=== PATIENT | female | born 1995 | race Caucasian/White ===

== ENCOUNTER 2016-10-31 20:17 | Emergency (ER) | payer OTHER ==
[~2016-10-31] VITALS: Ht 152.4 cm; Wt 116.6 kg
[~2016-10-31 20:17] MED LIST: AMOXICILLIN500 MG PO; AUGMENTIN 875875 MG PO; BACTRIM DS 8001 TA1 PO; BENADRYL25 MG PO; BIRTH CONTROL1 EAC1 PO; CILOXAN 5 ML5 M1 OT; CORTISPORIN SUS10 ML OT; DOXYCYCLINE HY100 M3 PO; DURICEF250 MG/5 M PO; FERATE27 MG PO; HYDROCODONE BIT1 T11 PO; INDERAL XL80 MG PO; IRON324 M1 PO; MACROBID100 M1 PO; METOCLOPRAMIDE5 MG PO; METRONIDAZOLE500 M1 PO; MIGRAINE MED; MOTRIN400 MG PO; NORCO 325 MG-51 TAB PO; PERCOCET 325 MG1 TA2 PO; PRENATAL1 TA1 PO; PROVENTIL0.09 MG/A1 INH; SYNTHROID25 MCG PO; TORADOL10 MG PO; ULTRAM50 MG PO; ZITHROMAX Z PA250 MG PO; ZOFRAN ODT4 MG SL; ZOFRAN4 MG PO; ZOSYN 4/0.5 44.5 GM IV; ZYRTEC10 MG PO; Zofran4 MG PO
[2016-10-31 20:47] VITALS: BP 142/58
[2016-10-31] MEDS ORDERED: AUGMENTIN 875-875 MG PO (21:41)
[2016-11-01] MEDS ORDERED: Zofran4 MG PO (12:03)
[2016-11-27] MEDS ORDERED: MACROBID100 M1 PO (04:01)
== END 2016-10-31 21:47 | disposition home or self-care (01) ==
LOC: ED 20:17
DX: J02.0 Streptococcal pharyngitis (principal); E78.5 Hyperlipidemia, unspecified; E03.9 Hypothyroidism, unspecified; G43.909 Migraine, unspecified, not intractable, without status migrainosus; E66.01 Morbid (severe) obesity due to excess calories

== ENCOUNTER 2017-02-07 21:38 | Emergency (ER) | payer OTHER ==
[~2017-02-07] VITALS: Ht 152.4 cm; Wt 72.1 kg
[~2017-02-07 21:38] MED LIST changes: +AUGMENTIN 875-875 MG PO
[2017-02-07] MEDS ORDERED: PRENATAL VITAM1 EAC2 PO (22:19)
[2017-02-07 22:20] VITALS: BP 123/57
[2017-02-07 22:38] LABS: BILIRUBIN NEGATIVE (NEGATIVE); BLOOD NEGATIVE (NEGATIVE); CLARITY CLOUDY (CLEAR); COLOR YELLOW (YELLOW); GLUCOSE NEGATIVE (NEGATIVE); KETONE TRACE (NEGATIVE); LEUKO ESTERASE 2+ (NEGATIVE); NITRITE NEGATIVE (NEGATIVE); PH 5.5 (5.0-9.0); PROTEIN NEGATIVE (NEGATIVE); SPECIFIC GRAVITY 1.025 (1.005-1.030)
[2017-02-07 22:51] LABS: BACTERIA 1+; EPITHELIAL CELLS 16-20; URINE REFLEX COMMENT YES (NO)
[2017-02-07 22:54] LABS: BASO % 0.2 % (0.0-1.0); EOS # 0.1 10*3/uL (0.0-0.4); HEMATOCRIT 34.4 % (37.0-47.0); HEMOGLOBIN 11.2 g/dl (12.0-16.0); LYMPH # 3.4 10*3/uL (1.3-4.4); LYMPH % 27.2 % (27.0-41.0); MEAN CELL VOLUME 85.1 fl (81.0-99.0); MEAN CORPUSCULAR HGB 27.7 pg (27.0-31.0); MEAN CORPUSCULAR HGB CONC 32.6 g/dl (33.0-37.0); MEAN PLATELET VOLUME 10.2 fl (9.6-12.3); MONO # 0.7 10*3/uL (0.1-1.0); MONO % 5.4 % (3.0-9.0); NEUT # 8.3 10*3/uL (2.3-7.9); NEUT % 65.9 % (47.0-73.0); PLATELET COUNT AUTOMATED 201 10*3/uL (130-400); RED BLOOD COUNT 4.04 10*6/uL (4.10-5.10); RED CELL DISTRI WIDTH 13.8 % (0-14.5); WHITE BLOOD COUNT 12.6 10*3/uL (4.8-10.8)
[2017-02-07] MEDS ORDERED: MACROBID100 M1 PO (23:25)
== END 2017-02-08 00:14 | disposition hospice, home (50) ==
LOC: ED 21:38
PROVIDERS: Nurse Practitioner Family; Student in an Organized Health Care Education/Training Program
DX: O98.811 Other maternal infectious and parasitic diseases complicating pregnancy, first trimester (principal); R82.71 Bacteriuria; E78.5 Hyperlipidemia, unspecified; E03.9 Hypothyroidism, unspecified; Z91.040 Latex allergy status; G43.909 Migraine, unspecified, not intractable, without status migrainosus; Z3A.01 Less than 8 weeks gestation of pregnancy

== ENCOUNTER 2017-02-19 16:54 | Emergency (ER) | payer OTHER ==
[~2017-02-19] VITALS: Ht 152.4 cm; Wt 113.4 kg
[~2017-02-19 16:54] MED LIST changes: +PRENATAL VITAM1 EAC2 PO
[2017-02-19 17:28] VITALS: BP 153/80
[2017-02-19 17:45] LABS: BASO % 0.2 % (0.0-1.0); EOS # 0.1 10*3/uL (0.0-0.4); EOS % 0.7 % (1.0-4.0); HEMATOCRIT 36.1 % (37.0-47.0); HEMOGLOBIN 11.7 g/dl (12.0-16.0); LYMPH # 1.6 10*3/uL (1.3-4.4); LYMPH % 14.2 % (27.0-41.0); MEAN CELL VOLUME 86.4 fl (81.0-99.0); MEAN CORPUSCULAR HGB CONC 32.4 g/dl (33.0-37.0); MEAN PLATELET VOLUME 10.3 fl (9.6-12.3); MONO # 0.4 10*3/uL (0.1-1.0); MONO % 3.4 % (3.0-9.0); NEUT # 9.2 10*3/uL (2.3-7.9); NEUT % 81.2 % (47.0-73.0); PLATELET COUNT AUTOMATED 198 10*3/uL (130-400); RED BLOOD COUNT 4.18 10*6/uL (4.10-5.10); RED CELL DISTRI WIDTH 14.6 % (0-14.5); WHITE BLOOD COUNT 11.3 10*3/uL (4.8-10.8)
[2017-02-19 18:02] LABS: ALBUMIN 3.3 gm/dl (3.1-4.5); ALKALINE PHOSPHATASE 67 U/L (45-117); BILIRUBIN, TOTAL 0.5 mg/dl (0.2-1.0); BUN 8 mg/dl (7-24); CARBON DIOXIDE 25 mmol/L (21-32); CHLORIDE 107 mmol/L (98-107); EST GLOM FILT AFRICAN AMERICAN > 60 ml/min; GLUCOSE 75 mg/dL (65-99); POTASSIUM 3.8 mmol/L (3.5-5.1); SGOT/AST 20 IU/L (3-35); SGPT/ALT 19 U/L (12-78); SODIUM 138 mmol/L (136-145)
[2017-02-19] MEDS ORDERED: DICLEGIS DR 101 EACH PO (18:53)
[2017-02-19 19:49] LABS: BILIRUBIN 1+ (NEGATIVE); BLOOD NEGATIVE (NEGATIVE); CLARITY SL CLOUDY (CLEAR); COLOR YELLOW (YELLOW); GLUCOSE NEGATIVE (NEGATIVE); KETONE 3+ (NEGATIVE); LEUKO ESTERASE 1+ (NEGATIVE); NITRITE NEGATIVE (NEGATIVE); PH 5.5 (5.0-9.0); PROTEIN TRACE (NEGATIVE); SPECIFIC GRAVITY 1.025 (1.005-1.030)
[2017-02-19 20:00] LABS: EPITHELIAL CELLS 40-45
[2017-02-19 20:01] LABS: BACTERIA 1+; MUCOUS TRACE; URINE REFLEX COMMENT YES (NO); WBC 16-20 wbc/hpf (0-5)
[2017-02-19] MEDS ORDERED: MACRODANTIN100 M1 PO (20:07)
== END 2017-02-19 20:49 | disposition home or self-care (01) ==
LOC: ED 16:54
PROVIDERS: Nurse Practitioner Family
DX: O23.41 Unspecified infection of urinary tract in pregnancy, first trimester (principal); O21.9 Vomiting of pregnancy, unspecified; O99.331 Smoking (tobacco) complicating pregnancy, first trimester; O26.891 Other specified pregnancy related conditions, first trimester; E78.5 Hyperlipidemia, unspecified; E03.9 Hypothyroidism, unspecified; G43.909 Migraine, unspecified, not intractable, without status migrainosus; E66.01 Morbid (severe) obesity due to excess calories; Z3A.01 Less than 8 weeks gestation of pregnancy; Z79.899 Other long term (current) drug therapy; Z91.040 Latex allergy status

== ENCOUNTER 2018-02-25 02:52 | Emergency (ER) | payer OTHER ==
[~2018-02-25] VITALS: Ht 152.4 cm; Wt 102.1 kg
[~2018-02-25 02:52] MED LIST changes: +DICLEGIS DR 101 EACH PO; +MACRODANTIN100 M1 PO
[2018-02-25 03:41] LABS: URINE AMPHETAMINES < 1000 (1000ng/ml); URINE BARBITURATES < 200 (200ng/ml); URINE BENZODIAZEPINES < 200 (200ng/ml); URINE CANNABINOIDS (THC) < 50 (50ng/ml); URINE COCAINE < 300 (300ng/ml); URINE METHADONE < 300 (300ng/ml); URINE OPIATES < 300 (300ng/ml)
[2018-02-25 03:42] LABS: URINE PHENCYCLIDINE < 25 (25ng/ml)
[2018-02-25 04:54] VITALS: BP 129/86
== END 2018-02-25 05:08 | disposition home or self-care (01) ==
LOC: ED 02:52
PROVIDERS: Emergency Medicine
DX: G43.909 Migraine, unspecified, not intractable, without status migrainosus (principal); E78.5 Hyperlipidemia, unspecified; Z91.040 Latex allergy status

== ENCOUNTER 2018-04-23 16:05 | Emergency (ER) | payer OTHER ==
[~2018-04-23] VITALS: Wt 104.3 kg
[2018-04-23 16:15] VITALS: BP 107/65
== END 2018-04-23 17:08 | disposition home or self-care (01) ==
LOC: ED 16:05
DX: Z00.00 Encounter for general adult medical examination without abnormal findings (principal); F17.200 Nicotine dependence, unspecified, uncomplicated; E78.5 Hyperlipidemia, unspecified; E03.9 Hypothyroidism, unspecified; G43.909 Migraine, unspecified, not intractable, without status migrainosus; E66.01 Morbid (severe) obesity due to excess calories; Z79.899 Other long term (current) drug therapy; Z91.040 Latex allergy status

== ENCOUNTER 2018-08-07 11:53 | Emergency (ER) | payer OTHER ==
[~2018-08-07] VITALS: Ht 157.4 cm; Wt 108.9 kg
[2018-08-07 11:54] VITALS: BP 126/66
[2018-08-07 12:16] LABS: BILIRUBIN NEGATIVE (NEGATIVE); BLOOD TRACE-LYSED (NEGATIVE); CLARITY CLOUDY (CLEAR); COLOR YELLOW (YELLOW); GLUCOSE NEGATIVE (NEGATIVE); KETONE NEGATIVE (NEGATIVE); LEUKO ESTERASE 2+ (NEGATIVE); NITRITE NEGATIVE (NEGATIVE); SPECIFIC GRAVITY 1.025 (1.005-1.030); UROBILINOGEN 0.2 E.U./dl (0.2-1.0)
[2018-08-07 12:20] LABS: BASO % 0.2 % (0.0-1.0); EOS # 0.1 10*3/uL (0.0-0.4); EOS % 0.7 % (1.0-4.0); HEMATOCRIT 38.7 % (37.0-47.0); HEMOGLOBIN 12.5 g/dl (12.0-16.0); LYMPH # 1.9 10*3/uL (1.3-4.4); LYMPH % 20.5 % (27.0-41.0); MEAN CELL VOLUME 83.9 fl (81.0-99.0); MEAN CORPUSCULAR HGB 27.1 pg (27.0-31.0); MEAN CORPUSCULAR HGB CONC 32.3 g/dl (33.0-37.0); MEAN PLATELET VOLUME 10.5 fl (9.6-12.3); MONO # 0.4 10*3/uL (0.1-1.0); NEUT # 6.7 10*3/uL (2.3-7.9); NEUT % 74.3 % (47.0-73.0); PLATELET COUNT AUTOMATED 223 10*3/uL (130-400); RED BLOOD COUNT 4.61 10*6/uL (4.10-5.10); RED CELL DISTRI WIDTH 13.7 % (0-14.5); WHITE BLOOD COUNT 9.1 10*3/uL (4.8-10.8)
[2018-08-07 12:31] LABS: BACTERIA 3+; EPITHELIAL CELLS 20-30
[2018-08-07 12:34] LABS: ALBUMIN 3.5 gm/dl (3.1-4.5); ALKALINE PHOSPHATASE 83 U/L (45-117); BUN 13 mg/dl (7-24); CHLORIDE 106 mmol/L (98-107); CREATININE 0.88 mg/dL (0.55-1.02); POTASSIUM 3.8 mmol/L (3.5-5.1); SGOT/AST 16 IU/L (3-35); SGPT/ALT 26 U/L (12-78); SODIUM 139 mmol/L (136-145)
[2018-08-07] MEDS ORDERED: VIBRAMYCIN100 MG PO (13:26)
[2018-08-07] MEDS ORDERED: NAPROSYN500 MG PO (13:33)
[2018-08-10 20:08] LABS: GONOCOCCUS BY NAA Negative (Negative)
== END 2018-08-07 14:41 | disposition home or self-care (01) ==
LOC: ED 11:53
PROVIDERS: Emergency Medicine
DX: N73.9 Female pelvic inflammatory disease, unspecified (principal); E66.01 Morbid (severe) obesity due to excess calories; E78.5 Hyperlipidemia, unspecified; E03.9 Hypothyroidism, unspecified; G43.909 Migraine, unspecified, not intractable, without status migrainosus; F17.200 Nicotine dependence, unspecified, uncomplicated; Z91.040 Latex allergy status; Z79.2 Long term (current) use of antibiotics; Z79.899 Other long term (current) drug therapy

== ENCOUNTER 2018-09-16 12:01 | Emergency (ER) | payer OTHER ==
[~2018-09-16] VITALS: Ht 154.9 cm; Wt 104.3 kg
[~2018-09-16 12:01] MED LIST changes: +NAPROSYN500 MG PO; +VIBRAMYCIN100 MG PO
[2018-09-16 13:38] VITALS: BP 125/82
== END 2018-09-16 13:57 | disposition short-term general hospital (02) ==
LOC: ED 12:01
DX: S80.12XA Contusion of left lower leg, initial encounter (principal); S80.11XA Contusion of right lower leg, initial encounter; S30.811A Abrasion of abdominal wall, initial encounter; S40.212A Abrasion of left shoulder, initial encounter; M54.2 Cervicalgia; M54.6 Pain in thoracic spine; M54.5 Low back pain; V49.3XXA Car occupant (driver) (passenger) injured in unspecified nontraffic accident, initial encounter; Y93.89 Activity, other specified; Y92.828 Other wilderness area as the place of occurrence of the external cause; Y99.8 Other external cause status

== ENCOUNTER 2018-11-13 12:02 | Emergency (ER) | payer OTHER ==
[~2018-11-13] VITALS: Ht 165.1 cm; Wt 95.3 kg
[2018-11-13 12:04] VITALS: BP 119/63
[2018-11-13 12:28] LABS: BILIRUBIN NEGATIVE (NEGATIVE); BLOOD NEGATIVE (NEGATIVE); CLARITY CLEAR (CLEAR); COLOR YELLOW (YELLOW); GLUCOSE NEGATIVE (NEGATIVE); KETONE NEGATIVE (NEGATIVE); LEUKO ESTERASE 1+ (NEGATIVE); NITRITE NEGATIVE (NEGATIVE)
[2018-11-13 12:49] LABS: BACTERIA 2+; EPITHELIAL CELLS 21-30; RBC 0-2 rbc/hpf (0-2)
== END 2018-11-13 13:07 | disposition home or self-care (01) ==
LOC: ED 12:02
PROVIDERS: Nurse Practitioner Family
DX: O26.891 Other specified pregnancy related conditions, first trimester (principal); R11.0 Nausea; E78.5 Hyperlipidemia, unspecified; E03.9 Hypothyroidism, unspecified; G43.909 Migraine, unspecified, not intractable, without status migrainosus; Z3A.01 Less than 8 weeks gestation of pregnancy; Z91.040 Latex allergy status; Z91.041 Radiographic dye allergy status; Z79.899 Other long term (current) drug therapy

== ENCOUNTER 2019-01-31 19:28 | Emergency (ER) | payer OTHER ==
[~2019-01-31] VITALS: Ht 154.9 cm; Wt 105.7 kg
[2019-01-31 19:29] VITALS: BP 123/69
[2019-01-31 20:03] LABS: BILIRUBIN NEGATIVE (NEGATIVE); BLOOD 3+ (NEGATIVE); CLARITY SL CLOUDY (CLEAR); COLOR YELLOW (YELLOW); GLUCOSE NEGATIVE (NEGATIVE); KETONE TRACE (NEGATIVE); LEUKO ESTERASE 1+ (NEGATIVE); NITRITE POSITIVE (NEGATIVE); SPECIFIC GRAVITY 1.015 (1.005-1.030); UROBILINOGEN 0.2 E.U./dl (0.2-1.0)
[2019-01-31 20:11] LABS: WBC TNTC wbc/hpf (0-5)
[2019-01-31] MEDS ORDERED: PYRIDIUM100 MG PO (20:27)
== END 2019-01-31 20:43 | disposition home or self-care (01) ==
LOC: ED 19:28
PROVIDERS: Nurse Practitioner Family
DX: O23.42 Unspecified infection of urinary tract in pregnancy, second trimester (principal); E78.5 Hyperlipidemia, unspecified; E66.01 Morbid (severe) obesity due to excess calories; E03.9 Hypothyroidism, unspecified; G43.909 Migraine, unspecified, not intractable, without status migrainosus; Z3A.18 18 weeks gestation of pregnancy; Z91.040 Latex allergy status; Z91.041 Radiographic dye allergy status; Z79.899 Other long term (current) drug therapy; Z91.018 Allergy to other foods

== ENCOUNTER 2019-08-19 22:13 | Emergency (ER) | payer OTHER ==
[~2019-08-19] VITALS: Ht 152.4 cm; Wt 98.9 kg
[~2019-08-19 22:13] MED LIST changes: +PYRIDIUM100 MG PO
[2019-08-19 22:14] VITALS: BP 156/103
== END 2019-08-19 23:08 | disposition home or self-care (01) ==
LOC: ED 22:13
DX: Z32.02 Encounter for pregnancy test, result negative (principal); E78.5 Hyperlipidemia, unspecified; E03.9 Hypothyroidism, unspecified; G43.909 Migraine, unspecified, not intractable, without status migrainosus; E66.01 Morbid (severe) obesity due to excess calories; J45.909 Unspecified asthma, uncomplicated; Z91.040 Latex allergy status; Z91.041 Radiographic dye allergy status; Z91.018 Allergy to other foods; Z79.899 Other long term (current) drug therapy

== ENCOUNTER 2020-05-11 09:15 | Emergency (ER) | payer OTHER ==
[2020-05-11 09:21] VITALS: BP 118/63
[2020-05-11] MEDS ORDERED: OMNICEF300 MG PO (09:58)
== END 2020-05-11 10:08 | disposition home or self-care (01) ==
LOC: ED 09:15
DX: H66.93 Otitis media, unspecified, bilateral (principal); Z91.040 Latex allergy status; Z91.041 Radiographic dye allergy status; Z79.899 Other long term (current) drug therapy

== ENCOUNTER 2022-03-13 10:16 | Emergency (ER) | payer SELFPAY ==
[~2022-03-13] VITALS: Ht 152.4 cm; Wt 108.9 kg
[~2022-03-13 10:16] MED LIST changes: +OMNICEF300 MG PO
[2022-03-13 10:44] VITALS: BP 140/87
== END 2022-03-13 12:56 | disposition home or self-care (01) ==
LOC: ED 10:16
DX: H57.89 Other specified disorders of eye and adnexa (principal)

== ENCOUNTER 2022-05-11 14:31 | Emergency (ER) | payer OTHER ==
[2022-05-11 14:48] VITALS: BP 130/69
[2022-05-11] MEDS ORDERED: AMOXICILLIN500 M2 PO (14:59)
== END 2022-05-11 15:20 | disposition home or self-care (01) ==
LOC: ED 14:31
DX: J02.8 Acute pharyngitis due to other specified organisms (principal); H92.03 Otalgia, bilateral; R53.83 Other fatigue; Z91.040 Latex allergy status; Z79.899 Other long term (current) drug therapy; Z79.2 Long term (current) use of antibiotics

== ENCOUNTER 2022-07-28 20:32 | Emergency (ER) | payer BC ==
[~2022-07-28] VITALS: Ht 154.9 cm; Wt 104.3 kg
[~2022-07-28 20:32] MED LIST changes: +AMOXICILLIN500 M2 PO
[2022-07-28 23:12] VITALS: BP 114/69
[2022-07-28 23:56] LABS: BASO % 0.3 % (0.0-1.0); EOS # 0.3 10*3/uL (0.0-0.4); HEMATOCRIT 39.3 % (37.0-47.0); LYMPH # 3.2 10*3/uL (1.3-4.4); LYMPH % 25.9 % (27.0-41.0); MEAN CELL VOLUME 87.9 fl (81.0-99.0); MEAN CORPUSCULAR HGB 28.4 pg (27.0-31.0); MEAN CORPUSCULAR HGB CONC 32.3 g/dl (33.0-37.0); MEAN PLATELET VOLUME 10.3 fl (9.6-12.3); MONO # 0.6 10*3/uL (0.1-1.0); MONO % 4.5 % (3.0-9.0); NEUT # 8.3 10*3/uL (2.3-7.9); PLATELET COUNT AUTOMATED 215 10*3/uL (130-400); RED BLOOD COUNT 4.47 10*6/uL (4.10-5.10); RED CELL DISTRI WIDTH 14.3 % (0-14.5); WHITE BLOOD COUNT 12.4 10*3/uL (4.8-10.8)
[2022-07-29 00:12] LABS: ALKALINE PHOSPHATASE 81 U/L (45-117); BUN 15 mg/dl (7-24); CHLORIDE 109 mmol/L (98-107); CREATININE 1.01 mg/dL (0.55-1.02); LIPASE 95 U/L (73-393); POTASSIUM 3.9 mmol/L (3.5-5.1); SGOT/AST 20 IU/L (3-35); SGPT/ALT 29 U/L (12-78); SODIUM 141 mmol/L (136-145); TOTAL PROTEIN 7.8 gm/dL (6.4-8.2)
[2022-07-29 01:07] LABS: BILIRUBIN Negative (Negative); BLOOD Negative (Negative); CLARITY Turbid (Clear); COLOR Yellow (Yellow); GLUCOSE Negative (Negative); KETONE Trace (Negative); LEUKO ESTERASE 2+ (Negative); NITRITE Negative (Negative); PH 5.5 (4.5-8.0); SPECIFIC GRAVITY >= 1.030 (1.001-1.030)
[2022-07-29 01:15] LABS: EPITHELIAL CELLS 41-50
[2022-07-29 01:16] LABS: BACTERIA TRACE; WBC 16-20 wbc/hpf (0-5)
[2022-07-29] MEDS ORDERED: RELAFEN500 M1 PO (01:26)
[2022-07-29] MEDS ORDERED: DIFLUCAN150 MG PO (01:26)
[2022-07-29] MEDS ORDERED: CYCLOBENZAPRINE10 MG PO (01:26)
[2022-07-29] MEDS ORDERED: CEPHALEXIN500 M1 PO (01:26)
== END 2022-07-29 01:45 | disposition home or self-care (01) ==
LOC: ED 20:32
PROVIDERS: Family Medicine
DX: N39.0 Urinary tract infection, site not specified (principal); M54.50 Low back pain, unspecified; Z91.040 Latex allergy status; Z91.041 Radiographic dye allergy status

== ENCOUNTER 2022-09-06 11:51 | Emergency (ER) | payer BC ==
[~2022-09-06 11:51] MED LIST changes: +CEPHALEXIN500 M1 PO; +CYCLOBENZAPRINE10 MG PO; +DIFLUCAN150 MG PO; +RELAFEN500 M1 PO
== END 2022-09-06 15:41 | disposition left against medical advice (07) ==
LOC: ED 11:51
DX: R05.9 Cough, unspecified (principal); R11.10 Vomiting, unspecified; R51.9 Headache, unspecified; Z53.21 Procedure and treatment not carried out due to patient leaving prior to being seen by health care provider

== ENCOUNTER 2023-01-08 12:10 | Emergency (ER) | payer SELFPAY ==
[~2023-01-08] VITALS: Ht 154.9 cm; Wt 110.2 kg
[2023-01-08 12:15] VITALS: BP 119/70
== END 2023-01-08 14:52 | disposition left against medical advice (07) ==
LOC: ED 12:10
DX: G43.909 Migraine, unspecified, not intractable, without status migrainosus (principal); R11.0 Nausea; H53.149 Visual discomfort, unspecified; D64.9 Anemia, unspecified; J45.909 Unspecified asthma, uncomplicated; Z98.890 Other specified postprocedural states; Z91.040 Latex allergy status; Z91.018 Allergy to other foods; Z91.041 Radiographic dye allergy status

== ENCOUNTER 2023-01-10 11:19 | Emergency (ER) | payer SELFPAY ==
[~2023-01-10] VITALS: Ht 154.9 cm; Wt 111.1 kg
[2023-01-10 11:27] VITALS: BP 134/77
[2023-01-10 11:59] LABS: BASO % 0.2 % (0.0-1.0); EOS # 0.1 10*3/uL (0.0-0.4); EOS % 0.6 % (1.0-4.0); LYMPH # 1.7 10*3/uL (1.3-4.4); LYMPH % 16.9 % (27.0-41.0); MEAN CELL VOLUME 88.2 fl (81.0-99.0); MEAN CORPUSCULAR HGB 29.2 pg (27.0-31.0); MEAN CORPUSCULAR HGB CONC 33.1 g/dl (33.0-37.0); MEAN PLATELET VOLUME 10.2 fl (9.6-12.3); MONO # 0.7 10*3/uL (0.1-1.0); NEUT # 7.4 10*3/uL (2.3-7.9); NEUT % 74.9 % (47.0-73.0); PLATELET COUNT AUTOMATED 188 10*3/uL (130-400); RED BLOOD COUNT 4.08 10*6/uL (4.10-5.10); RED CELL DISTRI WIDTH 12.7 % (0-14.5); WHITE BLOOD COUNT 9.9 10*3/uL (4.8-10.8)
[2023-01-10 12:08] LABS: BILIRUBIN Negative (Negative); BLOOD 1+ (Negative); CLARITY Cloudy (Clear); COLOR Dark Yellow (Yellow); GLUCOSE Negative (Negative); KETONE 1+ (Negative); LEUKO ESTERASE 2+ (Negative); NITRITE Positive (Negative); PH 5.5 (4.5-8.0)
[2023-01-10 12:15] LABS: ALKALINE PHOSPHATASE 89 U/L (46-116); BUN 8 mg/dl (9-23); CHLORIDE 103 mmol/L (98-107); LIPASE 25 U/L (12-53); POTASSIUM 3.6 mmol/L (3.4-5.1); SGPT/ALT 40 U/L (10-49); TOTAL PROTEIN 7.9 gm/dL (6.0-8.0)
[2023-01-10 12:27] LABS: BACTERIA 3+; EPITHELIAL CELLS TNTC; WBC TNTC wbc/hpf (0-5)
[2023-01-10] MEDS ORDERED: LEVOFLOXACIN500 MG PO (12:33)
[2023-01-10] MEDS ORDERED: Motrin,Rufen800 MG PO (12:37)
[2023-01-10] MEDS ORDERED: ONDANSETRON4 MG SL (12:37)
== END 2023-01-10 12:42 | disposition home or self-care (01) ==
LOC: ED 11:19
PROVIDERS: Nurse Practitioner Family
DX: N39.0 Urinary tract infection, site not specified (principal); D64.9 Anemia, unspecified; J45.909 Unspecified asthma, uncomplicated; G43.909 Migraine, unspecified, not intractable, without status migrainosus; Z91.040 Latex allergy status; Z91.041 Radiographic dye allergy status; Z91.018 Allergy to other foods; Z98.890 Other specified postprocedural states

== ENCOUNTER 2023-09-28 01:59 | Emergency (ER) | payer MEDICAID ==
[~2023-09-28] VITALS: Ht 154.9 cm; Wt 113.4 kg
[~2023-09-28 01:59] MED LIST changes: +LEVOFLOXACIN500 MG PO; +Motrin,Rufen800 MG PO; +ONDANSETRON4 MG SL
[2023-09-28 02:05] VITALS: BP 132/64
[2023-09-28] MEDS ORDERED: CEPHALEXIN500 M1 PO (03:02)
== END 2023-09-28 03:16 | disposition home or self-care (01) ==
LOC: ED 01:59
DX: Z48.817 Encounter for surgical aftercare following surgery on the skin and subcutaneous tissue (principal); E78.5 Hyperlipidemia, unspecified; E03.9 Hypothyroidism, unspecified; J45.909 Unspecified asthma, uncomplicated; G43.909 Migraine, unspecified, not intractable, without status migrainosus; D64.9 Anemia, unspecified; Z91.041 Radiographic dye allergy status; Z91.040 Latex allergy status; Z91.018 Allergy to other foods; Z98.890 Other specified postprocedural states